=== PATIENT | male | born 1960 | race Caucasian/White ===

== ENCOUNTER 2017-04-17 06:57 | Day surgery (SDC) | payer OTHER ==
[~2017-04-17] VITALS: Ht 172.7 cm; Wt 81.7 kg
[~2017-04-17 06:57] MED LIST: CHOLESTEROL RE1 EACH PO; COCONUT OIL1000 MG PO; FISH OIL 1,0001 EAC3 PO; GARLIC400 M1 PO; OMEPRAZOLE20 M1 PO; PROVENTIL HFA6.7 GM INH; VITAMIN C500 M1 PO; VITAMIN D2000 UNI1 PO
[2017-04-17] MEDS ORDERED: PAIN & FEVER325 MG PO (07:23)
--- NOTE | 2017-04-17 09:58 | NUR ---
04/17/17 0958 MoneJairo singh PT SLEEPING, SAT 100%. O2 DECREASED TO 6L VIA MASK.
--- NOTE | 2017-04-17 10:21 | NUR ---
PT TAKES SIPS OF WATER AND COUGHS. PT ENCOURAGED TO CONTINUE GOING SLOW W/WATER. CALL LIGHT W/IN REACH. CONTINUOUS PULSE OXIMETER IN PLACE.
--- NOTE | 2017-04-17 11:29 | NUR ---
1125 - PT AWAKE AND STATES HE IS "FEELING WELL" PT RAITING PAIN AT 1/10 AND ASKES IF HE CAN TAKE SOME PAIN MEDICATION NOW SO THAT THE PAIN "WONT COME BACK TOO STRONG." PT TOLERATING PUDDING AND WATER. BED RAILS UP, CALL LIGHT WITHIN REACH.
--- NOTE | 2017-04-17 11:38 | NUR ---
1135 - PT WOULD LIKE TO TAKE A NORCO PAIN PILL BUT IS CONCERNED ABOUT SWALLOWING THE PILL. PT TOLERATING PO FLUIDS AND PUDDING. PHARMACY CALLED AND STATES THAT NORCO MAY BE CRUSHED. PILL CRUSHED (SEE MAR) AND MIXED WITH PUDDING. PT SWALLOWED WITHOUT DIFFICULTY.
--- NOTE | 2017-04-17 13:53 | NUR ---
PT RESTING COMFORTABLY, ALERT AND ORIENTED. HE SEEMED INFORMED, AND READY FOR HIS PROCEDURE. NO REAL QUESTIONS, REQUESTED PRAYER. WILL FOLLOW NEEDED
== END 2017-04-17 12:35 | disposition home or self-care (01) ==
LOC: DS 06:57 → OPS 08:00 → DS 12:35
PROVIDERS: Otolaryngology
PROC: 0WB60ZX Excision of Neck, Open Approach, Diagnostic (ICD-10-PCS; principal; 2017-04-17 08:00)
DX: C76.0 Malignant neoplasm of head, face and neck (principal); E78.00 Pure hypercholesterolemia, unspecified; J30.2 Other seasonal allergic rhinitis; Z88.0 Allergy status to penicillin
CPT/HCPCS: 00300; J0690; J1100; J2250; J2405; J2704; J3010; J7120

== ENCOUNTER 2017-05-01 06:59 | Day surgery (SDC) | payer OTHER ==
[~2017-05-01 06:59] MED LIST changes: +PAIN & FEVER325 MG PO
[2017-05-01] MEDS ORDERED: ASPIR 8181 MG PO (07:27)
--- NOTE | 2017-05-01 08:26 | NUR ---
PT UPDATED ON WAITING TIME DUE TO AN EMERGENCY
--- NOTE | 2017-05-01 08:47 | NUR ---
PT ALERT, ORIENTED AND SEEMS RELAXED. HE WAS JUST RECENTLY HERE FOR A PREVIOUS PROCEDURE. HE SHARED WITH ME THAT DRS HAVE DISCOVERED HE HAS A VERY TREATABLE CANCER, AND HE SEEMS TO BE DEALING APPROPRIATELY. HIS IS TO COME IN A FEW MINUTES. PT REQUESTED PRAYER, AND IS WAITING PATIENTLY. WILL FOLLOW NEEDED
--- NOTE | 2017-05-01 11:09 | NUR ---
05/01/17 1109 Angella Ramirez REPORT FROM [employer] MACHINE OPERATOR.
--- NOTE | 2017-07-17 09:33 | OR ---
[facility] [address] [place], [place] [address] Signed DATE OF SERVICE: 05/01/2017 PREOPERATIVE DIAGNOSIS: Metastatic squamous cell carcinoma, right neck. 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 PROCEDURES: Direct laryngoscopy, biopsy of base of tongue tumor, direct rigid sophagoscopy. ANESTHESIA: General orotracheal. ANESTHESIOLOGIST: Brian DUMONT. PREOPERATIVE HISTORY: Mr. Del Valle is a [id number] with a recently biopsied right neck node showing metastatic squamous cell carcinoma. He was taken to the operating room for endoscopy exam under anesthesia in an effort to find a primary tumor. OPERATIVE PROCEDURE AND FINDINGS: After informed consent, the patient was taken to the operating room, placed in supine position, where general orotracheal anesthesia was induced. The patient and procedure were verified. During intubation, quite a bit of bleeding occurred with the laryngoscope. The site was undetermined and the intubation was successfully performed with a GlideScope. Digital palpation of the base of tongue showed a very large indurated hard tumor on the right base of tongue extending across the midline to the left side. The majority of the tumor was right sided, but a significant portion also in the left base of tongue. This was a deeply indurated tumor and appeared to be friable in the posterior most portion. The anterior commissure laryngoscope was then used to visualize the hypopharynx and larynx. The tumor was so hard and indurated, it was impossible to visualizethe vocal cords. Lateral pharyngeal wall, tonsils and everything else visible was unremarkable. The right base of tongue was visualized. There was some friable exophytic tissue. Multiple biopsies with a large angled cup biopsy forceps were obtained and sent to pathology in formalin, labeled right base of tongue. Bleeding was quite prominent, but stopped afterwards. The cervical esophagoscope was then passed down intothe upper cervical esophagus, but passage much beyond that due to the size of the tongue tumor was impossible. No lesions were Electronically Signed By: DIALLO DUNBAR MD 07/17/17 0933 PATIENT NAME: ELIZABETH DEL VALLE OPERATIVE REPORT DATE OF : 62 PHYSICIAN: DIALLO DUNBAR MD REPORT #: [id number] REPORT IS CONFIDENTIAL AND NOT TO BE RELEASED WITHOUT AUTHORIZATION [facility] [address] [place], [place] [address], [place] [address] Signed identified. No biopsies. Reinspection after removing scope showed no further bleeding. The patient was then awakened, extubated, and transported to the recovery room in good condition. COMPLICATIONS: No complications. BLOOD LOSS: Around 100 mL. SPECIMEN: Right base of tongue tumor to pathology. DRAINS: No drains. Diallo Dunbar MD GC/Modl /[id number] Electronically Signed By: DIALLO DUNBAR MD 07/17/17 0933 PATIENT NAME: ELIZABETH DEL VALLE OPERATIVE REPORT DATE OF : 62 PHYSICIAN: DIALLO DUNBAR MD REPORT #: [id number] REPORT IS CONFIDENTIAL AND NOT TO BE RELEASED WITHOUT AUTHORIZATION
== END 2017-05-01 13:30 | disposition home or self-care (01) ==
LOC: DS 06:59
PROVIDERS: Otolaryngology
PROC: 0CBM8ZX Excision of Pharynx, Via Natural or Artificial Opening Endoscopic, Diagnostic (ICD-10-PCS; principal; 2017-05-01 08:00)
PROC: 0DJ08ZZ Inspection of Upper Intestinal Tract, Via Natural or Artificial Opening Endoscopic (ICD-10-PCS; 2017-05-01 08:00)
DX: C01 Malignant neoplasm of base of tongue (principal); E78.00 Pure hypercholesterolemia, unspecified; Z88.0 Allergy status to penicillin; Z98.52 Vasectomy status; Z98.890 Other specified postprocedural states
CPT/HCPCS: 00840; J0330; J2405; J2704; J3010; J7120